=== PATIENT | female | born 1965 | race Caucasian/White ===

== ENCOUNTER 2016-06-28 06:28 | Day surgery (SDC) | payer BC ==
[~2016-06-28] VITALS: Ht 167.6 cm; Wt 77.1 kg
[~2016-06-28 06:28] MED LIST: CITALOPRAM HBR20 MG PO; CLARITIN,ALAVAR10 MG PO; DITROPAN XL5 MG PO; HAIR-SKIN-NAIL1 EACH PO; RANITIDINE HCL150 MG PO
[2016-06-28 07:04] VITALS: BP 120/70
[2016-06-28 09:35] VITALS: BP 123/70
[2016-06-28 10:41] VITALS: BP 127/78
== END 2016-06-28 10:52 | disposition home or self-care (01) ==
LOC: SDC 06:28 → 2SOUTH 14:34 → EDSTATUS 14:34 → SDC 14:35
DX: N92.0 Excessive and frequent menstruation with regular cycle (principal); N84.0 Polyp of corpus uteri; Z87.891 Personal history of nicotine dependence; Z83.3 Family history of diabetes mellitus; Z82.49 Family history of ischemic heart disease and other diseases of the circulatory system; Z80.3 Family history of malignant neoplasm of breast; Z88.5 Allergy status to narcotic agent
CPT/HCPCS: 88305; J0690; J1100; J1885; J2250; J2405; J3010